=== PATIENT | female | born 1955 | race Native Hawaiian/Other Pacific Islander ===

== ENCOUNTER 2019-08-08 12:06 | Outpatient (CLI) | payer OTHER ==
[~2019-08-08 12:06] MED LIST: CYAN10009 IM; HUMALOG100 MG/ML SC; LEVO0.117 PO; LORA0.5T17 PO; PRISTIQ50 MG OR; ZOLP10TA2 PO
== END 2019-08-08 20:10 | disposition home or self-care (01) ==
LOC: LAB 12:06
DX: Z20.828 Contact with and (suspected) exposure to other viral communicable diseases (principal)
CPT/HCPCS: 87635; G2023; U0002